=== PATIENT | female | born 1960 | race Caucasian/White ===

== ENCOUNTER 2019-07-18 15:14 | Emergency (ER) | payer BC ==
[~2019-07-18] VITALS: Ht 162.6 cm; Wt 130.3 kg
[2019-07-18 15:21] VITALS: BP 117/67
[2019-07-18] MEDS ORDERED: HYDROcodone/APAP 5/325 TABLET PO ONE (15:30)
[2019-07-18] MEDS ORDERED: HYDROcodone/APAP 5/325 TABLET ONE (15:49)
== END 2019-07-18 16:58 | disposition home or self-care (01) ==
LOC: ED 16:52
DX: S42.201A Unspecified fracture of upper end of right humerus, initial encounter for closed fracture (principal); I10 Essential (primary) hypertension; I48.91 Unspecified atrial fibrillation; W01.10XA Fall on same level from slipping, tripping and stumbling with subsequent striking against unspecified object, initial encounter; Y93.89 Activity, other specified; Y92.511 Restaurant or cafe as the place of occurrence of the external cause; Y99.8 Other external cause status
CPT/HCPCS: 99283